=== PATIENT | female | born 1965 | race Caucasian/White ===

== ENCOUNTER → 2018-02-27 | Outpatient (CLI) | payer BC, MEDICARE ==
--- NOTE | 2018-02-27 18:35 | RADIOLOGY IMAGING REPORT ---
FACILITY: [facility] [place] PATIENT NAME: Iris Vogt : 1965 MR: [id number] V: [id number] EXAM DATE: ORDERING PHYSICIAN: GUILLERMO GEIGER TECHNOLOGIST: Location: [facility] [place] Patient: Iris Vogt : 1965 Visit/Account:[id number] Date of Sevice: 02/27/2018 Left lower extremity venous Doppler duplex ultrasound scan. HISTORY: Edema, knee replacement 6 months ago. COMPARISON: None. A color flow Doppler duplex ultrasound examination with spectral analysis was performed on the lower extremity. The common femoral vein, superficial femoral vein, and popliteal vein are normal. These ve ssels compress and augment normally. The upper portions of the trifurcation veins are unremarkable. P ortions of the deep veins of the calf are obscured. No intraluminal filling defects are identified to suggest acute thrombus in the deep venous system. Note that Doppler ultrasound is somewhat insensiti ve below the knee. A venous reflux study was not performed at this time. Edema is present in the sof t tissues of the lower leg. IMPRESSION: Soft tissue edema. Otherwise negative for acute deep vein thrombosis. Report Dictated By: Felton Campbell MD at 02/27/2018 6:29 PM Report E-Signed By: Felton Campbell MD at 02/27/2018 6:30 PM WSN:[id number]
== END ==
LOC: US 16:41
PROVIDERS: ATTEND Nurse Practitioner Family
DX: R60.0 Localized edema (principal)